=== PATIENT | female | born 1970 | race Caucasian/White ===

== ENCOUNTER 2016-08-10 12:23 | Inpatient (IN) | payer MEDICAID ==
[~2016-08-10] VITALS: Ht 152.4 cm; Wt 76.0 kg
[2016-08-10 14:18] LABS: BASOPHIL % 0.5 % (0-2); PLATELET COUNT 181 x10^3mcL (130-400)
[2016-08-10 14:35] LABS: CALCIUM 9.1 mg/dL (8.5-10.1); CARBON DIOXIDE 25.4 mmol/L (21-32); CHLORIDE SERUM 109 mmol/L (98-107); CREATININE SERUM 0.8 mg/dL (0.6-1.0); GFR1 > 60 mL/min; GLUCOSE SERUM 159 mg/dL (74-106); SODIUM SERUM 144 mmol/L (136-145)
[2016-08-10 14:39] LABS: ALBUMIN 3.6 g/dL (3.4-5.0); ALKALINE PHOSPHATASE 124 U/L (46-116); ALT/SGPT 142 U/L (14-59); AMYLASE 89 U/L (25-115); AST/SGOT 221 U/L (15-37); BILIRUBIN TOTAL 0.93 mg/dL (0.20-1.00); CHOLESTEROL 200 mg/dL (<200); HDL CHOLESTEROL 45 mg/dL (40-60); LIPASE 227 IU/L (73-393); TOTAL PROTEIN, SERUM 7.3 g/dL (6.4-8.2)
[2016-08-10 14:46] LABS: UA SPECIFIC GRAVITY 1.015 (1.005-1.035); microscopic required? YES; urine erythrocyte NEGATIVE (NEGATIVE)
[2016-08-10 16:25] LABS: CHOLESTEROL/HDL RATIO 4.4; MAGNESIUM 2.1 mg/dL (1.8-2.4); PHOSPHOROUS 3.7 mg/dL (2.5-4.9)
[2016-08-10 16:27] LABS: T3 TOTAL 1.04 ng/mL
[2016-08-10 16:35] LABS: FREE T4 0.93 ng/dL (0.76-1.46); FREE THYROXINE INDEX 2.7 ug/dL (1.4-4.5); T4(THYROXINE) 7.8 ug/dL (4.7-13.3)
[2016-08-10 16:44] VITALS: BP 143/71
[2016-08-10 19:06] LABS: AMPHETAMINE QUAL UR NONE DETECTED (NEG <=1000)
[2016-08-10 22:05] VITALS: BP 124/75
[2016-08-11 05:14] VITALS: BP 112/75
[2016-08-11 06:18] LABS: CALCIUM 8.7 mg/dL (8.5-10.1); CARBON DIOXIDE 25.3 mmol/L (21-32); CHLORIDE SERUM 109 mmol/L (98-107); CREATININE SERUM 0.8 mg/dL (0.6-1.0); GFR1 > 60 mL/min; GLUCOSE SERUM 120 mg/dL (74-106); POTASSIUM SERUM 4.7 mmol/L (3.5-5.1); SODIUM SERUM 144 mmol/L (136-145)
[2016-08-11 06:37] LABS: ALBUMIN 3.1 g/dL (3.4-5.0)
[2016-08-11 07:23] LABS: BASOPHIL % 0.4 % (0-2); PLATELET COUNT 164 x10^3mcL (130-400); RED CELL DISTRIBUTION WIDTH 12.5 % (11.5-14.5)
[2016-08-11 10:13] VITALS: BP 139/63
[2016-08-11 12:53] VITALS: BP 126/60
[2016-08-11 20:33] VITALS: BP 143/67
[2016-08-12 05:26] VITALS: BP 128/65
[2016-08-12 06:27] LABS: PLATELET COUNT 218 x10^3mcL (130-400); RED CELL DISTRIBUTION WIDTH 12.8 % (11.5-14.5)
[2016-08-12 06:50] LABS: BASOPHIL % 0 % (0-2)
[2016-08-12 07:02] LABS: ALBUMIN 3.6 g/dL (3.4-5.0); ALKALINE PHOSPHATASE 115 U/L (46-116); ALT/SGPT 204 U/L (14-59); AST/SGOT 89 U/L (15-37); BILIRUBIN TOTAL 0.9 mg/dL (0.20-1.00); CALCIUM 9.2 mg/dL (8.5-10.1); CARBON DIOXIDE 26.6 mmol/L (21-32); CHLORIDE SERUM 103 mmol/L (98-107); CREATININE SERUM 0.9 mg/dL (0.6-1.0); GFR1 > 60 mL/min; GLUCOSE SERUM 165 mg/dL (74-106); POTASSIUM SERUM 4.3 mmol/L (3.5-5.1); SODIUM SERUM 140 mmol/L (136-145); TOTAL PROTEIN, SERUM 7.7 g/dL (6.4-8.2)
[2016-08-12 09:50] VITALS: BP 158/71
[2016-08-12 13:14] VITALS: BP 130/69
[2016-08-12 17:29] VITALS: BP 133/66
[2016-08-12 21:38] VITALS: BP 137/79
[2016-08-13 05:56] VITALS: BP 126/74
[2016-08-13 09:08] VITALS: BP 131/77
[2016-08-13] MEDS ORDERED: GLU500 PO (10:56)
[2016-08-13] MEDS ORDERED: MACROBID100 MG PO (10:58)
[2016-08-13] MEDS ORDERED: LAC PO (10:59)
[2016-08-13 11:00] LABS: BASOPHIL % 0.3 % (0-2); PLATELET COUNT 198 x10^3mcL (130-400); RED CELL DISTRIBUTION WIDTH 12.9 % (11.5-14.5)
[2016-08-13] MEDS ORDERED: LIPI10 PO (11:00)
[2016-08-13] MEDS ORDERED: COL100 PO (11:02)
[2016-08-13] MEDS ORDERED: NORCO1 TA2 PO (11:02)
[2016-08-13 13:09] VITALS: BP 131/77
== END 2016-08-13 14:18 | disposition home or self-care (01) | DRG 263 ==
LOC: ED 12:23 → DU 15:24 → MU 08-12 18:22
PROVIDERS: Emergency Medicine; Family Medicine; Surgery; ADMIT Family Medicine
PROC: 8E0W4CZ Robotic Assisted Procedure of Trunk Region, Percutaneous Endoscopic Approach (ICD-10-PCS; 2016-08-11)
PROC: 0FT44ZZ Resection of Gallbladder, Percutaneous Endoscopic Approach (ICD-10-PCS; principal; 2016-08-11 07:30)
DX: K80.10 Calculus of gallbladder with chronic cholecystitis without obstruction (principal); N17.0 Acute kidney failure with tubular necrosis; E11.51 Type 2 diabetes mellitus with diabetic peripheral angiopathy without gangrene; E44.0 Moderate protein-calorie malnutrition; D68.69 Other thrombophilia; E11.59 Type 2 diabetes mellitus with other circulatory complications; N39.0 Urinary tract infection, site not specified; E11.65 Type 2 diabetes mellitus with hyperglycemia; E78.5 Hyperlipidemia, unspecified; Z68.32 Body mass index [BMI] 32.0-32.9, adult
CPT/HCPCS: 80307; 82962; 83880; 84439; 94150; J0690; J0696; J1170; J1885; J2270; J2405; J2704; J2710; J3010; J3490; J7030; Q0092

== ENCOUNTER 2018-12-28 13:10 | Inpatient (IN) | payer MEDICAID ==
[~2018-12-28] VITALS: Ht 157.5 cm; Wt 76.3 kg
[~2018-12-28 13:10] MED LIST: COL100 PO; GLU500 PO; LAC PO; LIPI10 PO; MACROBID100 MG PO; NORCO1 TA2 PO
[2018-12-28 13:19] VITALS: Ht 157.5 cm; Wt 76.3 kg
--- NOTE | 2018-12-28 14:19 | NUR ---
PT C/O INTERMITTENT VOMITING AND DIARRHEA X2 HRS CONFERENCE PLANNING MANAGER, PER PT "I HAD CHORIZO EGGS 3 HOURS AGO AND IT HAS BEEN HURTING SINCE" PT DENIES ANY ABD PAIN AND/OR URINARY S/S. PT DENIES ANY RECENT TRAUMA AND/OR INJURY, PT AAOX4, RESPS E/U, PT AFEBRLE AT THIS TIME, ABD SOFT, ROUND, NONDISTENDED AND NONTENDER UPON PALPATION, PT IN NAD, VSS, AWAITING MSE
--- NOTE | 2018-12-28 14:20 | NUR ---
WARM BLANKET AND SOCKS PROVIDED PER PT REQUEST AND COMFORT
[2018-12-28 15:10] LABS: PLATELET COUNT 218 x10^3mcL (130-400); RED CELL DISTRIBUTION WIDTH 13.1 % (11.5-14.5)
--- NOTE | 2018-12-28 15:10 | NUR ---
DAUGHTER AT BEDSIDE
[2018-12-28 15:12] LABS: CALCIUM 9.6 mg/dL (8.5-10.1); CARBON DIOXIDE 22.3 mmol/L (21-32); CREATININE SERUM 1.1 mg/dL (0.6-1.0); POTASSIUM SERUM 3.1 mmol/L (3.5-5.1)
--- NOTE | 2018-12-28 15:13 | NUR ---
LAC IV INFILTRATED, IV D/C AND NEW IV ADMIN TO RIGHT HAND 22 G TO CONTINUE NS BOLUS PER EMAR
--- NOTE | 2018-12-28 15:13 | NUR ---
WARM COMPRESS APPLIED TO LAC, +PMSC TO LUE
[2018-12-28 15:16] LABS: ALBUMIN 4.1 g/dL (3.4-5.0); BILIRUBIN TOTAL 0.4 mg/dL (0.20-1.00)
--- NOTE | 2018-12-28 15:23 | NUR ---
PT AMBULATORY WITH STEADY GAIT TO RESTROOM
--- NOTE | 2018-12-28 15:34 | NUR ---
LAB AT BEDSIDE
[2018-12-28 15:38] LABS: BAND NEUTROPHIL 2 % (0-10); BASOPHIL 0 % (0-2); MONOCYTE 3 % (0-7); SEGMENTED NEUTROPHILS 90 % (37-75); rbc morphology (normal/abnorm) NORMAL (NORMAL)
--- NOTE | 2018-12-28 16:05 | NUR ---
PT TAKEN TO CT VIA EDI
--- NOTE | 2018-12-28 16:40 | NUR ---
PT RESTING IN POSITION OF COMFORT, RESPS E/U, VSS, DAUGHTER AT BEDSIDE
--- NOTE | 2018-12-28 17:20 | NUR ---
STOOL SAMPLE TO LAB.
--- NOTE | 2018-12-28 17:50 | NUR ---
FLAGYL INFUSING PER MD ORDER, SEE EMAR, PT VSS AND IN NAD AT THIS TIME, FAMILY AT BEDSIDE, WILL CONTINUE TO MONITOR, CALL LIGHT WITHIN REACH
--- NOTE | 2018-12-28 18:20 | NUR ---
PORTABLE US IN PROGRESS
--- NOTE | 2018-12-28 19:26 | NUR ---
PORTABLE US STILL IN PROGRESS, PT IN NAD, RESPS E/U, VSS, FAMILY AT BEDSIDE
--- NOTE | 2018-12-28 19:30 | NUR ---
REPORT GIVEN TO SULMA CORRAL, HE IS AWARE THAT DR GTZ WILL BE VISITING [facility] TO DISCUSS POSSIBLE SX
--- NOTE | 2018-12-28 19:37 | NUR ---
RECEIVED REPORT FROM ER NURSE CHELSEY
--- NOTE | 2018-12-28 19:45 | NUR ---
ER NURSE CHELSEY GAVE UPDATE ON PT
--- NOTE | 2018-12-28 19:45 | NUR ---
PER MD WILSON VERBAL ORDER, PT OKAY TO BE ADMITTED
[2018-12-28 20:14] LABS: UA SPECIFIC GRAVITY >=1.030 (1.005-1.035); microscopic required? YES; urine erythrocyte NEGATIVE (NEGATIVE)
[2018-12-28 20:30] LABS: AMPHETAMINE QUAL UR NONE DETECTED (See below)
[2018-12-28 20:31] VITALS: BP 95/62
--- NOTE | 2018-12-28 20:36 | NUR ---
RECEIVED PT FROM ED VIA [employer]. ORIENTED PT TO ROOM AND SURROUNDINGS. IV NOTED TO RH PATENT AND INTACT. INSTRUCTED PT ON THE USE OF CALL LIGHT FOR ASSISTANCE. ENDORSED PT TO PRIMARY NURSE ELISABET
--- NOTE | 2018-12-28 20:57 | NUR ---
DR. GTZ WITH DR. MEEK IN TO ASSESS PT.
--- NOTE | 2018-12-28 21:43 | NUR ---
INFORMED DR. MEEK PT BLOOD SUGAR 199 FROM [phone], PT NPO. INSULIN NOT ADMINISTERED.
--- NOTE | 2018-12-28 22:41 | NUR ---
eyes closed, breathing even and unlabored. hob elevated 30 deg. call light within easy reach. kept npo since admission.
--- NOTE | 2018-12-28 22:41 | NUR ---
iv site to right hand free from erythema or swelling. daughter to stay the night.
--- NOTE | 2018-12-28 22:41 | NUR ---
late entry: - discussed plan of care with pt and her spouse. explained need to keep npo, blood sugar checks, and medications due. nurse elisabeth helped with translation.
--- NOTE | 2018-12-28 22:41 | NUR ---
increased ivf rate of ns to 125ml/hr per new order
--- NOTE | 2018-12-29 01:48 | NUR ---
STATED HAVING PAIN TO IV SITE TO RIGHT HAND. NO REDNESS OR SWELLING NOTED. IV REMOVED, INTACT. NEW IV INSERTED TO LEFT FOREARM, 22G. GOOD BLOOD RETURN, FLUSHED WELL. INSTRUCTED PT AND PT'S DAUGHTER TO CALL IF EXPERIENCING ANY PAIN, REDNESS OR SWELLING TO IV SITE. VERBALIZED UNDERSTANDING.
--- NOTE | 2018-12-29 02:56 | NUR ---
eyes closed, breathing even and unlabored on room air. iv site to left forearm free from erythema or swelling, ivf of ns infusing well at 125ml/hr. daughter at bedside
[2018-12-29 04:39] VITALS: BP 111/62
--- NOTE | 2018-12-29 06:07 | NUR ---
eyes closed, easily awakened. breathing unlabored. denies having pain at this time. iv site to left forearm free from erythema, swelling or pain. daughter at bedside.
[2018-12-29 06:37] LABS: CALCIUM 7.5 mg/dL (8.5-10.1); CARBON DIOXIDE 24.8 mmol/L (21-32); CHLORIDE SERUM 110 mmol/L (98-107); CREATININE SERUM 0.8 mg/dL (0.6-1.0); GFR1 > 60 mL/min; GLUCOSE SERUM 141 mg/dL (74-106); MAGNESIUM 1.5 mg/dL (1.8-2.4); POTASSIUM SERUM 3.9 mmol/L (3.5-5.1); SODIUM SERUM 143 mmol/L (136-145)
--- NOTE | 2018-12-29 07:11 | NUR ---
AWAKE AND ALERT, IN NO ACUTE DISTRESS. IV SITE FREE FROM ERYTHEMA OR SWELLING. DENIES HAVING PAIN. KEPT NPO. ENDORSED TO NURSE GABINO
--- NOTE | 2018-12-29 07:30 | NUR ---
PT ENDORSE TO ME THIS MORNING, LAYING IN BED RESTING. AA/O X4 BREATHING EVEN AND UNLABOARD ON RA, NO ACUTE RESP DISTRESS OR SOB NOTED. REMAINS NPO PENDING GI CONSULT. MEDSURG/ DENIES ANY CP OR PRESSURE. BOWEL SOUNDS ACTIVE IN ALL FOUR QUADS, LAST BM 12/29 PER PT LOOSE. VOIDS FREELY, AMB. IV TO THE LFA INTACT AND PATENT INFUSING AT 125ML/HR, NO REDNESS OR SWELLING NOTED. CALL LIGHT IN REACH. FAMILY AT BEDSIDE. WILL CONTINUE TO MONITOR.
[2018-12-29 08:02] LABS: BASOPHIL % 0.2 % (0-2); PLATELET COUNT 175 x10^3mcL (130-400); RED CELL DISTRIBUTION WIDTH 13.2 % (11.5-14.5)
[2018-12-29 08:59] VITALS: BP 109/62
[2018-12-29 12:00] VITALS: BP 95/56
--- NOTE | 2018-12-29 15:16 | NUR ---
PER DR. TRISTA NAVARRO FOR PT TO HAVE ICE CHIPS.
[2018-12-29 17:07] VITALS: BP 96/60
--- NOTE | 2018-12-29 18:08 | NUR ---
NO ACUTE CHANGES AT THIS TIME, NO ACUTE RESP DISTRESS OR SOB NOTED. REMAINS NPO PER DR. LEPE ORDERS FOR BOWEL REST. PT SITTING UP IN CHAIR WITH FMAILY BY HER SIDE. IV TO THE LFA INTACT AND INFUSING AT 125ML/HR NO REDNESS OR SWELLING NOTED. WILL ENDORSE TO INCOMING R.N.
--- NOTE | 2018-12-29 19:31 | NUR ---
AWAKE AND ALERT, BREATHING EVEN AND UNLABORED ON ROOM AIR. SITTING ON CHAIR. FAMILY MEMBERS IN ROOM. PT DENIES HAVING ABD PAIN OR NAUSEA. STATED PASSED SOFT STOOL TODAY. IVF OF NS INFUSING AT 125ML/HR, INFUSING WELL. IV SITE TO LEFT FOREARM FREE FROM ERYTHEMA OR SWELLING. PER ENDORSEMENT, NPO, BUT ICE CHIPS OK.
[2018-12-29 20:43] VITALS: BP 121/73
--- NOTE | 2018-12-29 22:39 | NUR ---
AWAKE AND ALERT, STATED SHE IS COMFORTABLE. FEMALE FAMILY IN ROOM.
[2018-12-30 06:01] VITALS: BP 118/65
--- NOTE | 2018-12-30 06:30 | NUR ---
EYES CLOSED, EASILY AWAKENED. BREATHING EVEN AND UNLABORED. CALL LIGHT WITHIN EASY REACH. DENIES HAVING ABD PAIN OR NAUSEA
--- NOTE | 2018-12-30 06:31 | NUR ---
IV SITE TO LEFT FOREARM FREE FROM ERYTHEMA OR SWELLING.
[2018-12-30 06:41] LABS: CALCIUM 7.8 mg/dL (8.5-10.1); CHLORIDE SERUM 110 mmol/L (98-107); CREATININE SERUM 0.7 mg/dL (0.6-1.0); GFR1 > 60 mL/min; GLUCOSE SERUM 132 mg/dL (74-106); MAGNESIUM 1.7 mg/dL (1.8-2.4); PHOSPHOROUS 3.2 mg/dL (2.5-4.9); POTASSIUM SERUM 3.5 mmol/L (3.5-5.1); SODIUM SERUM 145 mmol/L (136-145)
--- NOTE | 2018-12-30 07:18 | NUR ---
AWAKE AND ALERT, IN NO ACUTE DISTRESS. IVF INFUSING WELL. IV SITE INTACT. ENDORSED TO NURSE CROW
--- NOTE | 2018-12-30 07:52 | NUR ---
AAO TIMES 4. MED SURG. LUNGS CTA. NO SOB. O2 SAT ON RA 97%. BS'S ACTIVE TIMES 4. ZAMORANO STRONG. STATES SHE FEELS HUNGRY, NO C/O N/V/DIARRHEA. PERIPHERAL PULSES PALPABLE. NO EDEMA. FAMILY MEMBER AT BEDSIDE. NPO, BUT STATED THEY WILL ORDER A DIET.
[2018-12-30 08:00] LABS: BASOPHIL % 0.4 % (0-2); PLATELET COUNT 171 x10^3mcL (130-400); RED CELL DISTRIBUTION WIDTH 13.3 % (11.5-14.5)
[2018-12-30 08:30] VITALS: BP 107/59
[2018-12-30 09:15] VITALS: BP 180/86
--- NOTE | 2018-12-30 15:39 | NUR ---
Diet education: Low fat diet education was provide along with NCM handouts. High fiber handout was also provided for diverticulosis. Patient did not have any questions at this time.
[2018-12-30 15:57] VITALS: BP 113/56
--- NOTE | 2018-12-30 16:06 | NUR ---
Discount pharmacy card and list to low cost medical clinics given to patient by Haider.
--- NOTE | 2018-12-30 18:18 | NUR ---
AAO TIMES 4. MED SURG PATIENT. NO SOB. NO C/O PAIN. FAMILY PRESENT, SUPPORIVE. COOPERATIVE. VS'S STABLE. IV SITE CDI.
--- NOTE | 2018-12-30 19:45 | NUR ---
RECEIVED PT SITTING IN CHAIR AT BEDSIDE. FAMILY AT BEDSIDE. PT IS AWAKE, ALERT, ORIENTED X4. SPEECH CLEAR. ABLE TO MAKE NEEDS KNOWN. DENIES PAIN OR DISCOMFORT. LUNG SOUND CLEAR. BREATHING EASILY ON ROOM AIR. BS ACTIVE IN ALL FOUR QUADS. NO ABD PAIN NOTED. LAST BM TODAY SOFT. VOIDING FREELY. PT ABLE TO AMBULATE WITHOUT ASSISTANCE. IVF NS AT 125ML/HR TO LFA. SHIFT ASSESSMENT COMPLETED. CALL LIGHT WITHIN REACH. WILL CONTINUE TO MONITOR CLOSELY.
--- NOTE | 2018-12-30 21:10 | NUR ---
FSBS IS 207, INSULIN COVERAGE GIVEN ORDERED. PT REFUSED COLACE, LAST BM TODAY STATES IT WAS SOFT. LEVAQUIN INFUSING WELL AT THIS TIME. SITE INTACT. CALL LIGHT WITHIN REACH. FAMILY REMAINS AT BEDSIDE. WILL CONTINUE TO MONITOR CLOSELY.
[2018-12-30 22:53] VITALS: BP 114/67
--- NOTE | 2018-12-31 03:55 | NUR ---
PT RESTING IN BED IN NO DISTRESS. APPEARS TO BE SLEEPING. IVF ONGOING. FAMILY AT BEDSIDE. CALL LIGHT WITHIN REACH. BED IS IN LOWEST POSITION. WILL CONTINUE TO MONITOR CLOSELY.
[2018-12-31 05:39] VITALS: BP 112/65
[2018-12-31 06:24] LABS: BASOPHIL % 0.4 % (0-2); PLATELET COUNT 179 x10^3mcL (130-400); RED CELL DISTRIBUTION WIDTH 13.3 % (11.5-14.5)
--- NOTE | 2018-12-31 06:30 | NUR ---
FSBS IS 126. IVF ONGOING. PT SLEPT WELL THROUGH OUT THE NIGHT. NO DISTRESS NOTED. ALL NEEDS TENDED TO. WILL ENDDRSE TO INCOMING SHIFT.
[2018-12-31 06:40] LABS: CALCIUM 8.3 mg/dL (8.5-10.1); CARBON DIOXIDE 25.5 mmol/L (21-32); CHLORIDE SERUM 110 mmol/L (98-107); CREATININE SERUM 0.7 mg/dL (0.6-1.0); GFR1 > 60 mL/min; GLUCOSE SERUM 132 mg/dL (74-106); MAGNESIUM 1.7 mg/dL (1.8-2.4); PHOSPHOROUS 3.2 mg/dL (2.5-4.9); POTASSIUM SERUM 3.5 mmol/L (3.5-5.1); SODIUM SERUM 144 mmol/L (136-145)
--- NOTE | 2018-12-31 07:05 | NUR ---
RECIEVED PT RESTING IN BED WITH FAMILY AT BEDSIDE. A/O X4 WITH NO MORALES OR DISSINESS. NO APPARENT DISTRESS OR PAIN NOTED. NS 125ML/HR RUNNING IN LFA, PATENT AND INTACT WITH NO REDNESS OR INFLAMMATION NOTED. SAFETY PRECAUTIONS IN PLACE, CALL LIGHT [id number] REACH, WILL MONITOR.
[2018-12-31 07:50] VITALS: BP 108/56
--- NOTE | 2018-12-31 11:00 | NUR ---
PT STABLE WITH NO C/O PAIN OR DISTRESS. SAFETY PRECAUTIONS IN PLACE, CALL LIGHT WITHIN REACH, WILL MONITOR.
[2018-12-31 14:01] VITALS: BP 108/56
--- NOTE | 2018-12-31 15:28 | NUR ---
PT IV REMOVED WITH CATHETER INTACT, PER PT REQUEST. CHARGE AWARE. NO REDNESS OR INFLAMMATION NOTED. WAITING ON DISCHARGE PAPERWORK.
[2018-12-31] MEDS ORDERED: LEVAQUIN750 MG PO (15:47)
[2018-12-31] MEDS ORDERED: FLA500 PO (15:48)
--- NOTE | 2018-12-31 16:44 | NUR ---
PT STABLE TO DISCHARGE PER MD ORDER. VS WNL. ALL DISCHARGE INSTRUCTIONS, EDUCATION, AND PRESCRIPTIONS GIVEN TO PT AND SHE VERBALIZES UNDERSTANDING. IV REMOVED WITH CATHETER INTACT, NO REDNESS OR INFLAMMATION NOTED. PT ESCORTED DOWN TO LOBBY VIA WC BY GISELLE. ALL PERSONAL BELONGINGS IN HAND AND FAMILY AT SIDE.
== END 2018-12-31 16:49 | disposition home or self-care (01) | DRG 720 ==
LOC: ED 13:10 → MU 18:49
PROVIDERS: Emergency Medicine; ADMIT Internal Medicine
DX: A41.9 Sepsis, unspecified organism (principal); N17.0 Acute kidney failure with tubular necrosis; E87.2 Acidosis; K76.0 Fatty (change of) liver, not elsewhere classified; E11.9 Type 2 diabetes mellitus without complications; K52.9 Noninfective gastroenteritis and colitis, unspecified; E86.0 Dehydration; E87.6 Hypokalemia; K57.30 Diverticulosis of large intestine without perforation or abscess without bleeding; K42.9 Umbilical hernia without obstruction or gangrene; Z68.33 Body mass index [BMI] 33.0-33.9, adult; Z79.84 Long term (current) use of oral hypoglycemic drugs; Z90.49 Acquired absence of other specified parts of digestive tract
CPT/HCPCS: 82962; 87046; 87046-59; G0378; J1815; J1956; J2405; J3480; J3490; J7030; Q0092; Q9967

== ENCOUNTER 2019-01-13 16:55 | Emergency (ER) | payer MEDICAID ==
[~2019-01-13] VITALS: Ht 152.4 cm; Wt 72.6 kg
[~2019-01-13 16:55] MED LIST changes: +FLA500 PO; +LEVAQUIN750 MG PO
[2019-01-13 17:34] VITALS: Ht 152.4 cm; Wt 72.6 kg
[2019-01-13 20:13] VITALS: BP 119/82
== END 2019-01-13 20:13 | disposition home or self-care (01) ==
LOC: ED 16:55
DX: R19.7 Diarrhea, unspecified (principal); R11.10 Vomiting, unspecified; R10.9 Unspecified abdominal pain; R53.1 Weakness